=== PATIENT | male | born 1955 | race Caucasian/White ===

== ENCOUNTER 2021-08-12 12:24 | Outpatient (CLI) | payer OTHER ==
--- NOTE | 2021-08-12 19:50 | MRI Report ---
PROCEDURE: Shoulder RT W/O INDICATIONS: RIGHT SHOULDER PAIN TECHNIQUE: Noncontrast oblique coronal T2 fast spin echo with fat saturation, oblique sagittal T1 spin echo and T2 fast spin echo with fat saturation, axial T1 spin echo and T2 fast spin echo with fat saturation t hrough the shoulder. COMPARISON: None. FINDINGS: Image quality: Excellent. Rotator cuff: There is high-grade partial articular sided tearing of the supraspinatus tendon at the distal footprint measuring 5 mm in anteroposterior dimension. A few attenuated bursal sided fibers ma intain continuity. Moderate supraspinatus and infraspinatus tendinosis. Superimposed foci of low-grad e intrasubstance tearing are seen in the distal infraspinatus tendon. The teres minor and subscapular is tendons are intact. There is no significant rotator cuff muscle atrophy. Bones and bursae: No acute trabecular bone injury. Small chronic traction cystic changes are seen at the posterosuperior humeral head. Partial-thickness cartilage loss is seen in the inferior glenoid. M oderate degenerative changes are seen in the acromioclavicular joint with subchondral cystic changes and marginal osteophyte formation. No significant subacromial/subdeltoid bursal fluid or glenohumeral effusion is present. Capsule and soft tissues: There is nondisplaced tearing of the inferior to posteroinferior labrum wit h a small 6 mm paralabral cyst. The biceps long head tendon is intact. There is normal fat signal in the rotator interval. The glenohumeral ligaments are intact. IMPRESSION: 1.High-grade partial articular sided tearing of the supraspinatus tendon at the distal footprint truong uring 5 mm in anteroposterior dimension superimposed on moderate tendinosis. 2.Moderate subscapularis tendinosis with foci of low-grade intrasubstance tearing distally. 3.Nondisplaced tearing of the inferior to posteroinferior labrum with a small 6 mm paralabral cyst. 4.Mild glenohumeral osteoarthrosis and moderate acromioclavicular osteoarthrosis. Reviewed by: Leonel Land MD on 08/12/2021 7:49 PM PDT Approved by: Leonel Land MD on 08/12/2021 7:49 PM PDT Station ID: [id number]
== END 2021-08-12 12:25 | disposition home or self-care (01) ==
LOC: DI 12:24
PROVIDERS: ATTEND Family Medicine
DX: M75.101 Unspecified rotator cuff tear or rupture of right shoulder, not specified as traumatic (principal); S43.491A Other sprain of right shoulder joint, initial encounter; M19.011 Primary osteoarthritis, right shoulder